=== PATIENT | female | born 1965 | race African-American/Black ===

== ENCOUNTER 2016-11-02 11:41 | Emergency (ER) | payer OTHER ==
[~2016-11-02] VITALS: Ht 165.1 cm; Wt 94.0 kg
[~2016-11-02 11:41] MED LIST: LISI-420 PO; ORE25 PO
[2016-11-02 11:46] VITALS: BP 141/88
--- NOTE | 2016-11-02 12:03 | NUR ---
Patient ambulated to bed 4. RN evaluating patient at bedside.
--- NOTE | 2016-11-02 12:04 | NUR ---
51F BIB COUGH & DIFFICULTY BREATHING X 1 WEEK. HX: ASTHMA, BRONCHITIS, HTN, RA, SJOGREN'S SYNDROME.SKIN IS PINK/WARM/DRY; AAOX4 WITH EVEN AND STEADY GAIT; LUNG :RHONCHI BL; HR EVEN AND REGULAR; PT DENIES ANY FEVER, CP AT THIS TIME; PATIENT STATES PAIN OF 0/10 AT THIS TIME; PATIENT POSITIONED FOR COMFORT; HOB ELEVATED; BEDRAILS UP X2; BED DOWN. ER MD MADE AWARE OF PT STATUS.
--- NOTE | 2016-11-02 12:10 | NUR ---
Dr. Casarez evaluating patient at bedside.
--- NOTE | 2016-11-02 12:12 | NUR ---
Joseph alba in [facility] - 11/02/16 at 1213 by MED1 Patient being evaluated by DR DE LA GARZA at bedside.
[2016-11-02] MEDS ORDERED: ALBUTEROL SULFATE/IPRATROPIU 3 ML SOL IH ONE (12:15)
--- NOTE | 2016-11-02 12:22 | NUR ---
RT AT BEDSIDE FOR 1ST BREATHING TREATMENT.
--- NOTE | 2016-11-02 12:45 | NUR ---
PT TAKEN TO X RAY VIA W/C,ACCOMPANIED BY [employer]BUTION SUPERVISOR.
--- NOTE | 2016-11-02 12:53 | NUR ---
pt back from x ray.
--- NOTE | 2016-11-02 12:55 | NUR ---
Dr. Casarez reevaluating patient at bedside.
[2016-11-02 13:07] VITALS: BP 126/75
--- NOTE | 2016-11-02 13:07 | NUR ---
Patient discharged with v/s stable. Written and verbal after care instructions given and explained. Patient alert, oriented and verbalized understanding of instructions. Ambulatory with steady gait. All questions addressed prior to discharge. ID band removed. Patient advised to follow up with PMD. Rx of ALBUTEROL & TESSALON PERLES given. Patient educated on indication of medication including possible reaction and side effects. Opportunity to ask questions provided and answered.
== END 2016-11-02 13:07 | disposition home or self-care (01) ==
LOC: MED 11:41
DX: J40 Bronchitis, not specified as acute or chronic (principal); F17.210 Nicotine dependence, cigarettes, uncomplicated; Z71.6 Tobacco abuse counseling
CPT/HCPCS: 71020; 94640; 99284; J7620

== ENCOUNTER 2017-05-17 16:10 | Emergency (ER) | payer OTHER ==
[~2017-05-17] VITALS: Ht 165.1 cm; Wt 97.1 kg
[2017-05-17 16:12] VITALS: BP 154/81
--- NOTE | 2017-05-17 16:28 | NUR ---
51 YO F BIB SELF W/ C/O CHEAST PAIN THAT RADIATES TO HER LEFT JAW, NECK, AND HEAD. PT HAS HX OF ASTHMA, RA, DDD. PT REPORTS THAT SHE WAS AT WORK ON FRIDAY WHEN THE CHEST PAIN STARTED. SHE SAYS THE PAIN WORSENS WHEN SHE LIES DOWN OR SMOKES CIGARETTES. PT A&O X 4. GCS 15. STEADY GAIT. PT DENIES N/V. PT SAID ON FRIDAY SHE HAD CHILLS AND FELT GENERALIZED BODY WEAKNESS. CMS INTACT. PT DENIES ANY DIFFICULTY BREATHING AT THIS TIME. PT SKIN IS WITHIN NORMAL LIMITS AND NOT DIAPHORETIC. PT DENIES LEFT ARM PAIN. ER MD BARK[place]ALE NOTIFIED. SAFETY PRECAUTIONS IN PLACE. PT NEEDS MET AT THIS TIME. WILL CONTINUE TO MONITOR.
[2017-05-17 17:20] LABS: EOSINOPHILS # (AUTO) 0.1 K/uL (0-0.4); LYMPHOCYTES # (AUTO) 2.3 K/uL (2.5-16.5); RED CELL DISTRIBUTION WIDTH 12.3 % (11.6-13.7)
[2017-05-17 17:22] LABS: BASOPHILS # (AUTO) 0.2 K/uL (0.00-0.22); BASOPHILS % (AUTO) 2.9 % (0.0-2.0); EOSINOPHILS % (AUTO) 1.5 % (0.0-4.0); HEMATOCRIT 39.2 % (36-48); HEMOGLOBIN 12.6 g/dL (12.0-16.0); LYMPHOCYTES % (AUTO) 30.3 % (20.5-51.1); MEAN CORPUSCULAR HEMOGLOBIN 29 pg (27-31); MEAN CORPUSCULAR HGB CONC 32 g/dL (33-37); MEAN CORPUSCULAR VOLUME 88.6 fL (80-94); MONOCYTES # (AUTO) 0.5 K/uL (0.8-1.0); MONOCYTES % (AUTO) 7.1 % (1.7-9.3); NEUTROPHILS # (AUTO) 4.6 K/uL (1.8-7.7); NEUTROPHILS % (AUTO) 58.2 % (42.2-75.2); PLATELET COUNT (AUTO) 267 K/uL (140-450); RED BLOOD CELL COUNT(AUTO) 4.42 MIL/uL (4.20-5.40); WHITE BLOOD COUNT (AUTO) 7.7 K/uL (4.8-10.8)
[2017-05-17 17:30] LABS: ANION GAP 14.8 (8-16); CARBON DIOXIDE 26.5 mmol/L (21-32); CREATININE 0.8 mg/dL (0.6-1.3); POTASSIUM 3.3 mmol/L (3.5-5.1)
[2017-05-17 17:36] LABS: ALBUMIN 3.8 g/dL (3.4-5.0); TOTAL BILIRUBIN 0.6 mg/dL (0.0-1.0)
--- NOTE | 2017-05-17 18:20 | NUR ---
PT VSS STABLE AT THIS TIME. PT IS REQUESTING PAIN MEDICATION. ER MD BARKSDALE NOTIFIED. PT NEEDS MET AT THIS TIME. WILL CONTNIUE TO MONITOR.
[2017-05-17] MEDS ORDERED: MORPHINE SULFATE 4 MG/ML SYR IM ONE (18:25)
[2017-05-17 19:13] VITALS: BP 156/84
--- NOTE | 2017-05-17 19:14 | NUR ---
Patient discharged with v/s stable. Written and verbal after care instructions given and explained. Patient alert, oriented and verbalized understanding of instructions. Ambulatory with steady gait. All questions addressed prior to discharge. ID band removed. Patient advised to follow up with PMD. Rx of IBUPROFEN 600 MG given. Patient educated on indication of medication including possible reaction and side effects. Opportunity to ask questions provided and answered.
== END 2017-05-17 19:14 | disposition home or self-care (01) ==
LOC: MED 16:10
DX: R09.1 Pleurisy (principal); J45.909 Unspecified asthma, uncomplicated; E11.9 Type 2 diabetes mellitus without complications; F17.210 Nicotine dependence, cigarettes, uncomplicated; I10 Essential (primary) hypertension; Z86.73 Personal history of transient ischemic attack (TIA), and cerebral infarction without residual deficits
CPT/HCPCS: 36415; 71045; 80053; 81002; 81025; 83880; 84484; 85025; 93005; 96372; 99285; J2270; Q0092

== ENCOUNTER 2018-07-18 11:18 | Emergency (ER) | payer OTHER ==
[~2018-07-18] VITALS: Ht 165.1 cm; Wt 95.3 kg
--- NOTE | 2018-07-18 11:21 | NUR ---
PT AMBULATED TO BED 04.
--- NOTE | 2018-07-18 11:23 | NUR ---
URINE CUP HANDED TO PT FOR SAMPLE
[2018-07-18 11:35] VITALS: BP 167/80
--- NOTE | 2018-07-18 11:40 | NUR ---
Pt c/o painful , burning sensation urination, chills for one day. Pt states her abdomen hurt while urinating. DENIES N/V/D; SKIN IS PINK/WARM/DRY; AAOX4 WITH EVEN AND STEADY GAIT; PT DENIES ANY CP, SOB, OR COUGH AT THIS TIME; PATIENT STATES PAIN OF 8/10 AT THIS TIME; VSS; PATIENT POSITIONED FOR COMFORT; HOB ELEVATED; BEDRAILS UP X2; BED DOWN. ER MD MADE AWARE OF PT STATUS.
[2018-07-18] MEDS ORDERED: KETOROLAC 60 MG/2 ML VIAL IM ONE (12:10)
[2018-07-18] MEDS ORDERED: cefTRIAXone 1,000 MG in LIDOCAINE 1% ***ER ONLY *** 2.1 ML IM ONE (12:10)
[2018-07-18] MEDS ORDERED: LEVOFLOXACIN 500 MG TAB PO ONE (12:10)
[2018-07-18] MEDS ORDERED: LIDOCAINE MPF 1% - 5 mL VIAL 5 ML ONE (12:45)
[2018-07-18] MEDS ORDERED: cefTRIAXone 1,000 MG VIAL ONE (12:45)
[2018-07-18 13:06] VITALS: BP 120/70
--- NOTE | 2018-07-18 13:07 | NUR ---
Patient discharged with v/s stable. Written and verbal after care instructions given and explained. Patient alert, oriented and verbalized understanding of instructions. Ambulatory with steady gait. All questions addressed prior to discharge. ID band removed. Patient advised to follow up with PMD. Rx of Tramadol and Levaquin given. Patient educated on indication of medication including possible reaction and side effects. Opportunity to ask questions provided and answered.
[2018-07-18 13:23] LABS: APPEARANCE,URINE HAZY (CLEAR); BILIRUBIN,URINE NEGATIVE (NEGATIVE); BLOOD, URINE 3+ (NEGATIVE); COLOR,URINE YELLOW (YELLOW); LEUKOCYTE ESTERASE ,URINE 2+ (NEGATIVE); NITRITE, URINE POSITIVE (NEGATIVE); UGLUCOSE NEGATIVE (NEGATIVE)
[2018-07-18 13:44] LABS: RBC,URINE 20-50 /HPF (0-5); WBC,URINE 60-80 /HPF (0-5)
== END 2018-07-18 13:07 | disposition home or self-care (01) ==
LOC: MED 11:18
DX: R30.0 Dysuria (principal); R35.0 Frequency of micturition; R68.83 Chills (without fever); J45.909 Unspecified asthma, uncomplicated; I10 Essential (primary) hypertension; Z86.73 Personal history of transient ischemic attack (TIA), and cerebral infarction without residual deficits; Z79.899 Other long term (current) drug therapy
CPT/HCPCS: 81001; 87086; 87186; 96372; 99283; J0696; J1885; J2001; 81025

== ENCOUNTER 2018-10-21 14:04 | Emergency (ER) | payer OTHER ==
[~2018-10-21] VITALS: Ht 162.6 cm; Wt 91.3 kg
--- NOTE | 2018-10-21 14:13 | NUR ---
Patient ambulated to bed 11. RN evaluating patient at bedside.
[2018-10-21 14:14] VITALS: BP 125/91
--- NOTE | 2018-10-21 14:28 | NUR ---
TRI REED AT BEDSIDE
[2018-10-21] MEDS ORDERED: ALBUTEROL SULFATE/IPRATROPIU 3 ML SOL IH ONE (14:40)
[2018-10-21] MEDS ORDERED: DEXAMETHASONE 10 MG/ML VIAL IM ONE (14:40)
--- NOTE | 2018-10-21 14:45 | NUR ---
52 YR OLD FEMALE BIB SELF W/ C/O SOB, PRODUCTIVE COUGH, AND RINORRHEA X 2 DAYS. LUNGS CONGESTED BILATERALLY. HAS BEEN USING HOME INHALER WITH MILD RELIEF. STATES S/S WORSE AT NIGHT. VSS. AA0X4. BED IS DOWN, LOCKED, BED RIAL X 1, ERMD TO SEE PT. PMH- ASTHMA
--- NOTE | 2018-10-21 14:47 | NUR ---
RT AT BEDSIDE, DECADRON ADMINISTERED IM
[2018-10-21 15:23] VITALS: BP 126/54
--- NOTE | 2018-10-21 15:24 | NUR ---
Patient discharged with v/s stable. Written and verbal after care instructions given and explained. Patient alert, oriented and verbalized understanding of instructions. Ambulatory with steady gait. All questions addressed prior to discharge. ID band removed. Patient advised to follow up with PMD. Rx of PREDNISONE, JOYCE CAMARGO given. Patient educated on indication of medication including possible reaction and side effects. Opportunity to ask questions provided and answered.
== END 2018-10-21 15:24 | disposition home or self-care (01) ==
LOC: MED 14:04
DX: J45.901 Unspecified asthma with (acute) exacerbation (principal); I10 Essential (primary) hypertension; F17.210 Nicotine dependence, cigarettes, uncomplicated; Z86.73 Personal history of transient ischemic attack (TIA), and cerebral infarction without residual deficits; Z79.899 Other long term (current) drug therapy
CPT/HCPCS: 94640; 96372; 99283; J1100; J7620

== ENCOUNTER 2019-12-31 15:56 | Emergency (ER) | payer OTHER ==
[~2019-12-31] VITALS: Ht 165.1 cm; Wt 92.8 kg
[2019-12-31 16:11] VITALS: BP 180/76
[2019-12-31] MEDS ORDERED: HYDROcodone/APAP 10/325 MG 1 TAB TAB PO ONE (17:10)
--- NOTE | 2019-12-31 17:58 | NUR ---
54 YEAR OLD MALE COMPLAINS OF WHOLE BODY PAIN THATS CHRONIC, BUT WORSE TODAY. PT STATES SHE ALSO HAS BILATERAL LEG PAIN. PT AOX4, BREATHING EVEN AND UNLABORED, SKIN WARM AND DRY. BED IN LOWEST POSITION, LOCKED, BED RAIL UPX1. PMH - RA, DM2, SJGENS, 2 STROKES, PREVIOUS HEART ATTACK, MYALGIA ALLERGIES - NKA
--- NOTE | 2019-12-31 18:40 | NUR ---
Patient discharged with v/s stable. Written and verbal after care instructions about chronic pain management given and explained. Patient alert, oriented and verbalized understanding of instructions. Ambulatory with steady gait. All questions addressed prior to discharge. ID band removed. Patient advised to follow up with PMD. Rx of norco given. Patient educated on indication of medication including possible reaction and side effects. Opportunity to ask questions provided and answered.
[2019-12-31 18:43] VITALS: BP 177/73
== END 2019-12-31 18:40 | disposition home or self-care (01) ==
LOC: MED 15:56
DX: M54.30 Sciatica, unspecified side (principal); M06.9 Rheumatoid arthritis, unspecified; M79.661 Pain in right lower leg; I63.9 Cerebral infarction, unspecified; I10 Essential (primary) hypertension; R73.03 Prediabetes; M35.00 Sjogren syndrome, unspecified; Z79.899 Other long term (current) drug therapy
CPT/HCPCS: 93971; 99284; Q0092

== ENCOUNTER 2020-02-17 17:14 | Emergency (ER) | payer OTHER ==
[~2020-02-17] VITALS: Ht 162.6 cm; Wt 90.7 kg
[2020-02-17 17:25] VITALS: BP 130/77
--- NOTE | 2020-02-17 17:38 | NUR ---
54/F BIB SELF C/O CONSTANT MID CHEST PAIN 8/10 X TODAY. BLOOD SUGAR 121 AT THIS TIME. PMH: A FIB, HEART ATTACK , STROKE, DM, C SECTION,HTN,SJOGREN'S SYNDROME
[2020-02-17 18:17] LABS: BASOPHILS % (AUTO) 0.6 % (0.0-2.0); EOSINOPHILS # (AUTO) 0.2 K/uL (0-0.4); EOSINOPHILS % (AUTO) 2.5 % (0.0-4.0); HEMATOCRIT 33.8 % (36-48); HEMOGLOBIN 11.2 g/dL (12.0-16.0); LYMPHOCYTES # (AUTO) 2.4 K/uL (2.5-16.5); LYMPHOCYTES % (AUTO) 33.1 % (20.5-51.1); MEAN CORPUSCULAR HEMOGLOBIN 29 pg (27-31); MEAN CORPUSCULAR HGB CONC 33 g/dL (33-37); MEAN CORPUSCULAR VOLUME 87.4 fL (80-94); MONOCYTES # (AUTO) 0.5 K/uL (0.8-1.0); MONOCYTES % (AUTO) 6.5 % (1.7-9.3); NEUTROPHILS # (AUTO) 4.2 K/uL (1.8-7.7); NEUTROPHILS % (AUTO) 57.3 % (42.2-75.2); PLATELET COUNT (AUTO) 240 K/uL (140-450); RED BLOOD CELL COUNT(AUTO) 3.87 MIL/uL (4.20-5.40); RED CELL DISTRIBUTION WIDTH 12.8 % (11.6-13.7); WHITE BLOOD COUNT (AUTO) 7.4 K/uL (4.8-10.8)
[2020-02-17 18:55] LABS: ALBUMIN 3.7 g/dL (3.4-5.0); ANION GAP 12.8 (8-16); CARBON DIOXIDE 31.3 mmol/L (21-32); CREATININE 0.9 mg/dL (0.6-1.3); POTASSIUM 3.1 mmol/L (3.5-5.1); TOTAL BILIRUBIN 0.3 mg/dL (0.0-1.0)
--- NOTE | 2020-02-17 18:55 | NUR ---
PT REFUSED TO STAY IN BED. PT STATES "I DONT WANT TO BE AROUND COVID. I WILL WAIT IN THE LOBBY." ERMD MADE AWARE.
[2020-02-17 19:07] LABS: PROTHROMBIN TIME 10.1 secs (10.8-13.4)
--- NOTE | 2020-02-17 19:25 | NUR ---
[facility] BY NIMISHA .
[2020-02-17] MEDS ORDERED: FAMOTIDINE 20 MG TAB PO ONE (19:35)
[2020-02-17] MEDS ORDERED: ALUMINUM HYD/MAG/SIMETHICONE 30 ML UDC PO ONE (19:35)
[2020-02-17] MEDS ORDERED: KETOROLAC 30 MG/ML VIAL IM ONE (19:40)
[2020-02-17] MEDS ORDERED: FAMOTIDINE 20 MG TAB ONE (19:41)
[2020-02-17] MEDS ORDERED: KETOROLAC 30 MG/ML VIAL ONE (19:42)
[2020-02-17] MEDS ORDERED: ALUMINUM HYD/MAG/SIMETHICONE 30 ML UDC ONE (19:42)
[2020-02-17 19:45] VITALS: BP 130/77
--- NOTE | 2020-02-17 19:45 | NUR ---
MEDICATED PER ERMDS ORDER, TOLERATED WELL ( PEPCID 20 MG PO, MYLANTA 30ML, TORADOL 30MG IM)
== END 2020-02-17 21:22 | disposition home or self-care (01) ==
LOC: MED 17:14
DX: R07.9 Chest pain, unspecified (principal); I11.0 Hypertensive heart disease with heart failure; J45.909 Unspecified asthma, uncomplicated; E11.9 Type 2 diabetes mellitus without complications; Z86.73 Personal history of transient ischemic attack (TIA), and cerebral infarction without residual deficits; Z79.899 Other long term (current) drug therapy
CPT/HCPCS: 36415; 71045; 80053; 84484; 85025; 85610; 85730; 93005; 96372; 99285; J1885

== ENCOUNTER 2020-03-27 18:36 | Emergency (ER) | payer OTHER ==
[~2020-03-27] VITALS: Ht 165.1 cm; Wt 90.7 kg
[2020-03-27 18:58] VITALS: BP 164/80
--- NOTE | 2020-03-27 19:30 | NUR ---
54 YR OLD FEMALE PRESENTED TO THE ER FOR CC OF DIZZINESS, HEADACHE, AND PALPITATIONS. PT IS AOX4. PT STATED CC STARTED APPROXIMATELY 830AM YESTERDAY. PT STATED HEADACHE AND NECK PAIN 4/10 AND DESCRIBES IT A NON-RADIATING THROBBING PAIN. PT STATED TAKING 5 500MG TYLENOL PILLS TO ALLEVIATE THE PAIN. PT DENIES NAUSEA AND DENIES VOMITING. PT DENIES OTHER MEDICAL COMPLAINTS. BED LOCKED IN LOWEST POSITION WITH 1 SIDE RAIL UP AND CALL LIGHT WITHIN REACH. WILL CONTINUE TO MONITOR. HISTORY- RA, "SJOGRENS", DM, HTN, [place] FEB 28 2019, 2 STROKES IN 2003, AND ASTHMA ALLERGIES- NONE
--- NOTE | 2020-03-27 21:00 | NUR ---
PT AMBULATED TO RESTROOM. STEADY GAIT OBSERVED.
--- NOTE | 2020-03-27 21:00 | NUR ---
PT FOUND AWAKE IN SEMI-FOWLERS IN BED. PT STATES NO DISTRESSED. PT HAS EQUAL RISE AND FALL UPON RESPIRATIONS. PT STATES NO OTHER MEDICAL COMPLAINTS. BED LOCKED IN LOWEST POSITION WITH 2 SIDE RAILS UP FOR SAFETY AND CALL LIGHT WITHIN REACH. WILL CONTINUE TO MONITOR.
--- NOTE | 2020-03-27 22:12 | NUR ---
Pt ambulated to restroom w/ steady gait.
--- NOTE | 2020-03-27 23:19 | NUR ---
Dr. Abdullahi examining patient.
--- NOTE | 2020-03-27 23:19 | NUR ---
Pt ambulated to restroom w/ steady gait.
--- NOTE | 2020-03-27 23:21 | NUR ---
Pt ambulated to ER bed 11 w/ steady gait.
[2020-03-27] MEDS: KETOROLAC 30 MG/ML VIAL IVP ONE (23:26)
[2020-03-27] MEDS: LORazepam 2 MG/ML VIAL IVP ONE (23:29)
[2020-03-27] MEDS: NACL 0.9% 500 ML IV ONE (23:30)
--- NOTE | 2020-03-27 23:38 | NUR ---
EKG PERFORMED AT BEDSIDE. EKG READS SINUS RHYTHM @ 57
[2020-03-27 23:43] LABS: BASOPHILS % (AUTO) 0.7 % (0.0-2.0); EOSINOPHILS # (AUTO) 0.1 K/uL (0-0.4); EOSINOPHILS % (AUTO) 2.2 % (0.0-4.0); HEMATOCRIT 32.8 % (36-48); HEMOGLOBIN 10.7 g/dL (12.0-16.0); LYMPHOCYTES # (AUTO) 2.4 K/uL (2.5-16.5); LYMPHOCYTES % (AUTO) 36.7 % (20.5-51.1); MEAN CORPUSCULAR HEMOGLOBIN 29 pg (27-31); MEAN CORPUSCULAR HGB CONC 33 g/dL (33-37); MEAN CORPUSCULAR VOLUME 88.6 fL (80-94); MONOCYTES # (AUTO) 0.5 K/uL (0.8-1.0); MONOCYTES % (AUTO) 7.5 % (1.7-9.3); NEUTROPHILS # (AUTO) 3.5 K/uL (1.8-7.7); NEUTROPHILS % (AUTO) 52.9 % (42.2-75.2); PLATELET COUNT (AUTO) 262 K/uL (140-450); RED BLOOD CELL COUNT(AUTO) 3.71 MIL/uL (4.20-5.40); WHITE BLOOD COUNT (AUTO) 6.6 K/uL (4.8-10.8)
[2020-03-28] LABS: PROTHROMBIN TIME 10.1 secs (10.8-13.4)
[2020-03-28 00:03] LABS: ALBUMIN 3.8 g/dL (3.4-5.0); ANION GAP 10.1 (8-16); CARBON DIOXIDE 30.6 mmol/L (21-32); CREATININE 0.8 mg/dL (0.6-1.3); POTASSIUM 3.7 mmol/L (3.5-5.1); TOTAL BILIRUBIN 0.6 mg/dL (0.0-1.0)
[2020-03-28 01:31] VITALS: BP 117/54
--- NOTE | 2020-03-28 01:31 | NUR ---
Patient discharged with v/s stable. Written and verbal after care instructions given and explained. Patient alert, oriented and verbalized understanding of instructions. Ambulatory with steady gait. All questions addressed prior to discharge. ID band removed. Patient advised to follow up with PMD. Rx of ROBAXIN AND TRAMADOL given. Patient educated on indication of medication including possible reaction and side effects. Opportunity to ask questions provided and answered.
--- NOTE | 2020-03-28 01:31 | NUR ---
IV removed, catheter intact and site benign. Applied folded 4x4 gauze and tape to stop bleeding.
--- NOTE | 2020-03-28 01:31 | NUR ---
PT WAS PROVIDED WITH A TAXI VOUCHER.
== END 2020-03-28 01:31 | disposition home or self-care (01) ==
LOC: MED 18:36
DX: G44.209 Tension-type headache, unspecified, not intractable (principal); I11.9 Hypertensive heart disease without heart failure; J45.909 Unspecified asthma, uncomplicated; Z86.73 Personal history of transient ischemic attack (TIA), and cerebral infarction without residual deficits; Z79.899 Other long term (current) drug therapy
CPT/HCPCS: 36415; 71045; 80053; 84484; 85025; 85610; 85730; 93005; 96361; 96374; 96375; 99285; J1885; J2060; J7030

== ENCOUNTER 2020-07-30 11:10 | Emergency (ER) | payer OTHER ==
[~2020-07-30] VITALS: Ht 162.6 cm; Wt 85.3 kg
[~2020-07-30 11:10] MED LIST changes: +HYDR-4004 PO; -LISI-420 PO; +LISI-487 PO; -ORE25 PO
[2020-07-30 11:13] VITALS: BP 178/68
[2020-07-30 11:48] LABS: BASOPHILS % (AUTO) 0.5 % (0.0-2.0); EOSINOPHILS # (AUTO) 0.1 K/uL (0-0.4); HEMATOCRIT 34.1 % (36-48); HEMOGLOBIN 11.3 g/dL (12.0-16.0); LYMPHOCYTES # (AUTO) 1.4 K/uL (2.5-16.5); LYMPHOCYTES % (AUTO) 23.6 % (20.5-51.1); MEAN CORPUSCULAR HEMOGLOBIN 29 pg (27-31); MEAN CORPUSCULAR HGB CONC 33 g/dL (33-37); MONOCYTES # (AUTO) 0.3 K/uL (0.8-1.0); MONOCYTES % (AUTO) 4.7 % (1.7-9.3); NEUTROPHILS # (AUTO) 4.2 K/uL (1.8-7.7); NEUTROPHILS % (AUTO) 70.2 % (42.2-75.2); PLATELET COUNT (AUTO) 251 K/uL (140-450); RED BLOOD CELL COUNT(AUTO) 3.87 MIL/uL (4.20-5.40); RED CELL DISTRIBUTION WIDTH 12.5 % (11.6-13.7)
[2020-07-30 12:00] LABS: ALBUMIN 3.5 g/dL (3.4-5.0); CARBON DIOXIDE 28.4 mmol/L (21-32); CREATININE 0.8 mg/dL (0.6-1.3); POTASSIUM 3.4 mmol/L (3.5-5.1); TOTAL BILIRUBIN 0.5 mg/dL (0.0-1.0)
[2020-07-30] MEDS ORDERED: POTASSIUM CHLORIDE 10 MEQ TABER PO ONE (12:20)
[2020-07-30 13:16] VITALS: BP 149/69
== END 2020-07-30 13:16 | disposition home or self-care (01) ==
LOC: MED 11:10
DX: R00.2 Palpitations (principal); E87.6 Hypokalemia; J45.909 Unspecified asthma, uncomplicated; I10 Essential (primary) hypertension; E11.9 Type 2 diabetes mellitus without complications; Z98.890 Other specified postprocedural states; Z86.73 Personal history of transient ischemic attack (TIA), and cerebral infarction without residual deficits; Z79.899 Other long term (current) drug therapy
CPT/HCPCS: 36415; 71045; 80053; 84484; 85025; 85379; 93005; 99284

== ENCOUNTER 2020-11-23 02:09 | Emergency (ER) | payer OTHER ==
[~2020-11-23] VITALS: Ht 165.1 cm; Wt 90.7 kg
[2020-11-23 02:11] VITALS: BP 183/87
--- NOTE | 2020-11-23 02:30 | NUR ---
PT. IS A 55 Y/O FEMALE THAT CAME INTO ED WITH C/O OF HEADACHE. PT. ADMITS TO N/V/D BUT DENIES FEVER. PT. STATES SHE COULD NOT SLEEP AND RATES PAIN AT 8/10 ON THE PAIN SCALE AT THIS TIME. WHEN ASKED TO DESCRIBE PAIN, PT. STATES "HEADACHE FEELS LIKE TIGHTENING AND IS MOSTLY ON MY LEFT SIDE." SKIN IS PINK/WARM/DRY; AAOX4 WITH EVEN AND STEADY GAIT; HR EVEN AND REGULAR; PT DENIES ANY FEVER, CP, SOB, OR COUGH AT THIS TIME; VSS; PATIENT POSITIONED FOR COMFORT; HOB ELEVATED; BEDRAILS UP X2; BED DOWN. ER MD MADE AWARE OF PT STATUS. PMH: HTN, STROKE ALLERGIES: NKA
--- NOTE | 2020-11-23 02:30 | NUR ---
TO BED AMBULATORY
--- NOTE | 2020-11-23 02:38 | NUR ---
NIMISHA MUNOZ AT BEDSIDE FOR MEDICAL EXAMINATION
[2020-11-23] MEDS ORDERED: CLONIDINE HYDROCHLORIDE 0.1 MG TAB PO ONE (02:50)
--- NOTE | 2020-11-23 04:41 | NUR ---
PT. IS LAYING COMFORTABLY WITH EYES CLOSED IN SUPINE POSITION. VOICES NO COMPLAINTS AT THIS TIME.
--- NOTE | 2020-11-23 04:45 | NUR ---
RECHECKED BLOOD PRESSURE = 120/52
[2020-11-23] MEDS ORDERED: CLON0.1T16 PO (05:23)
[2020-11-23 05:36] VITALS: BP 119/54
--- NOTE | 2020-11-23 05:36 | NUR ---
Patient discharged with v/s stable. Written and verbal after care instructions given and explained. Patient alert, oriented and verbalized understanding of instructions. Ambulatory with steady gait. All questions addressed prior to discharge. ID band removed. Patient advised to follow up with PMD. Rx of CATAPRES given. Patient educated on indication of medication including possible reaction and side effects. Opportunity to ask questions provided and answered.
[2020-11-25] MEDS ORDERED: IBUP-2218 PO (06:29)
== END 2020-11-23 05:36 | disposition home or self-care (01) ==
LOC: MED 02:09
DX: R51.9 Headache, unspecified (principal); I10 Essential (primary) hypertension; R11.2 Nausea with vomiting, unspecified; H53.149 Visual discomfort, unspecified; J45.909 Unspecified asthma, uncomplicated; Z79.899 Other long term (current) drug therapy; Z86.73 Personal history of transient ischemic attack (TIA), and cerebral infarction without residual deficits
CPT/HCPCS: 70450; 99284

== ENCOUNTER 2022-07-12 16:40 | Emergency (ER) | payer OTHER ==
[~2022-07-12] VITALS: Ht 162.6 cm; Wt 92.1 kg
[~2022-07-12 16:40] MED LIST changes: +CLON0.1T16 PO; +IBUP-2218 PO
[2022-07-12 17:05] VITALS: BP 129/77
[2022-07-12] MEDS ORDERED: DICL20GE TP (18:02)
[2022-07-12] MEDS ORDERED: HYDR-5191 PO (18:02)
[2022-07-12] MEDS ORDERED: HYDROcodone/APAP 7.5/325 MG 1 TAB PO ONE (18:05)
--- NOTE | 2022-07-12 18:43 | NUR ---
Patient discharged with v/s stable. Written and verbal after care instructions given and explained. Patient alert, oriented and verbalized understanding of instructions. Ambulatory with steady gait. All questions addressed prior to discharge. ID band removed. Patient advised to follow up with PMD. Rx of VOLTAREN NORCO 10-325 given. Patient educated on indication of medication including possible reaction and side effects. Opportunity to ask questions provided and answered.
== END 2022-07-12 18:22 | disposition home or self-care (01) ==
LOC: MED 16:40
DX: M54.2 Cervicalgia (principal); I10 Essential (primary) hypertension; J45.909 Unspecified asthma, uncomplicated; Z76.0 Encounter for issue of repeat prescription; Z79.899 Other long term (current) drug therapy; Z86.73 Personal history of transient ischemic attack (TIA), and cerebral infarction without residual deficits
CPT/HCPCS: 99281

== ENCOUNTER 2023-04-08 17:48 | Emergency (ER) | payer OTHER ==
[~2023-04-08] VITALS: Ht 165.1 cm; Wt 90.7 kg
[~2023-04-08 17:48] MED LIST changes: +DICL20GE TP; +HYDR-5191 PO
[2023-04-08 18:30] VITALS: BP 160/79; PULSE 80; RESP 18; TEMP 95.9; O2SAT 98
[2023-04-08] MEDS ORDERED: ACET-8905 PO (19:14)
[2023-04-08] MEDS: KETOROLAC 30 MG/ML VIAL IM ONE (19:30)
== END 2023-04-08 19:47 | disposition home or self-care (01) ==
LOC: MED 17:48
DX: K11.5 Sialolithiasis (principal); J45.909 Unspecified asthma, uncomplicated; I11.9 Hypertensive heart disease without heart failure; Z86.73 Personal history of transient ischemic attack (TIA), and cerebral infarction without residual deficits; Z79.899 Other long term (current) drug therapy
CPT/HCPCS: 96372; 99283; J1885

== ENCOUNTER 2023-12-19 18:44 | Emergency (ER) | payer OTHER ==
[~2023-12-19] VITALS: Ht 165.1 cm; Wt 93.0 kg
[~2023-12-19 18:44] MED LIST changes: +ACET-8905 PO; +HYDR-5071 PO; -HYDR-5191 PO; -LISI-487 PO; +LISI-953 PO
[2023-12-19 19:44] VITALS: BP 167/69; PULSE 68; RESP 18; TEMP 98.2; O2SAT 100
[2023-12-19] MEDS ORDERED: HYDR-5080 PO (20:57)
== END 2023-12-19 21:20 | disposition home or self-care (01) ==
LOC: MED 18:44
DX: M06.9 Rheumatoid arthritis, unspecified (principal); M19.90 Unspecified osteoarthritis, unspecified site; I10 Essential (primary) hypertension; J45.909 Unspecified asthma, uncomplicated; I48.91 Unspecified atrial fibrillation; Z86.73 Personal history of transient ischemic attack (TIA), and cerebral infarction without residual deficits; Z79.899 Other long term (current) drug therapy
CPT/HCPCS: 99281